=== PATIENT | female | born 1945 | race Caucasian/White ===

== ENCOUNTER 2018-03-17 03:35 | Inpatient (IN) | payer MEDICARE, OTHER ==
[2018-03-17] MEDS ORDERED: ACETAMINOPHEN 325 MG TAB PO (05:30)
[2018-03-17] MEDS ORDERED: E LYTES MM (05:30)
[2018-03-17] MEDS ORDERED: CARBOXYMETHYLCELLULOSE MM (05:30)
[2018-03-17] MEDS ORDERED: DEXTROSE 50% 50 ML SYRINGE IV ×3 (05:30→06:30)
[2018-03-17] MEDS ORDERED: VANCOMYCIN IV PER PHARMACY XX (05:30)
[2018-03-17] MEDS ORDERED: GLUCAGON 1 MG INJ IM ×2 (05:30→06:30)
[2018-03-17] MEDS: METOCLOPRAMIDE 10 MG INJ IV ×3 (06:00→18:23)
[2018-03-17] MEDS ORDERED: LEVOTHYROXINE 175 MCG TAB PO (06:00)
[2018-03-17] MEDS ORDERED: NORepinephrine 8MG/250 ML (PMX 250 ML (06:21)
[2018-03-17] MEDS ORDERED: GLUCOSE GEL 15 GRAM TUBE BUCCAL (06:30)
[2018-03-17] MEDS ORDERED: GLUCOSE GEL 15 GRAM TUBE PO ×2 (06:30)
[2018-03-17] MEDS ORDERED: LEVOTHYROXINE 125 MCG TAB PO (06:47)
[2018-03-17] MEDS: NORepinephrine 8MG/250 ML (PMX 250 ML IV (07:17)
[2018-03-17 08:24] LABS: ABNORMAL IP MESSAGE 1; HEMATOCRIT 27.9 % (37.0-47.0); HEMOGLOBIN 8.6 g/dl (12.0-16.0); MEAN CORPUSCULAR HEMOGLOBIN 29.5 pg (29.0-33.0); MEAN CORPUSCULAR HGB CONC 30.8 g/dl (32.0-37.0); MEAN CORPUSCULAR VOLUME 95.5 fl (82.0-101.0); MEAN PLATELET VOLUME 10.9 fl (7.4-10.4); NUCLEATED RED BLOOD CELLS% 0.7 /100WBC (0.0-0.0); PLATELET COUNT 89 10^3/UL (140-415); RED BLOOD COUNT 2.92 10^6/ul (4.20-5.40); RED CELL DISTRIBUTION WIDTH 21.8 % (11.5-14.5)
[2018-03-17 08:24] LABS: WHITE BLOOD COUNT 21.6 10^3/ul (4.8-10.8)
[2018-03-17 08:27] LABS: ADD MAN DIFF? YES; POSITIVE DIFF @See below
[2018-03-17 08:41] LABS: VANCOMYCIN,RANDOM 12.7 ug/ml
[2018-03-17] MEDS: MIDODRINE 5 MG TAB PO ×3 (09:00→17:00)
[2018-03-17] MEDS: FLUCONAZOLE 100 MG TAB NGT (09:00)
[2018-03-17] MEDS ORDERED: PETROLATUM 5 GM OINT TOP (09:00)
[2018-03-17] MEDS: CLOTRIMAZOLE 10 MG TROCHE MT ×5 (09:00→22:01)
[2018-03-17] MEDS: NYSTATIN SUSP 5 ML CUP PO ×4 (09:00→22:01)
[2018-03-17] MEDS: LIDOCAINE 5% PATCH TD (09:00)
[2018-03-17] MEDS: PETROLATUM 28.35 GM JELLY TOP (09:00)
[2018-03-17] MEDS: DOCUSATE SODIUM 100 MG CAP PO (09:00)
[2018-03-17 09:17] LABS: ANISOCYTOSIS 2+ (0-0); BAND NEUTROPHILS #M 5.4 10^3/ul (0.0-0.6); BAND NEUTROPHILS % (M) 25 % (0-4); BASOPHIL #M 0.2 10^3/ul (0.0-0.0); BASOPHILS % (M) 1 % (0-2); BURR CELLS 1+ (0-0); HYPOCHROMASIA 1+ (0-0); LYMPHOCYTES #M 0.4 10^3/ul (0.8-2.9); LYMPHOCYTES % (M) 2 % (15-51); METAMYELOCYTES #M 0.2 10^3/ul (0.0-0.0); METAMYELOCYTES %M 1 % (0-0); MONOCYTE #M 0.2 10^3/ul (0.3-0.9); MONOCYTES % (M) 1 % (0-11); MYELOCYTES % (M) 5 % (0-0); PLATELET ESTIMATE DECREASED; POIKILOCYTOSIS 1+ (0-0); POLYCHROMASIA 3+ (0-0); SEG NEUT #M 15.2 10^3/ul (1.6-7.5); SEGMENTED NEUTROPHILS (M) % 65 % (39-77); SMUDGE%M 2 % (0-0)
[2018-03-17] MEDS: IPRATROPIUM (NEB) 0.5 MG/2.5 ML AMP HHN ×4 (09:26→21:37)
[2018-03-17] MEDS: ALBUTEROL 0.083% (NEB) 2.5 MG/3 ML AMP HHN ×4 (09:26→21:37)
[2018-03-17] MEDS: LIDOCAINE 2% VISC 15 ML CUP PO ×3 (09:30→18:23)
[2018-03-17] MEDS: PANTOPRAZOLE (EC) 40 MG TAB PO (09:34)
[2018-03-17] MEDS: LEVOTHYROXINE 125 MCG TAB PO (09:34)
[2018-03-17] MEDS: BACITRACIN 0.9 GM OINT TOP ×2 (09:37→21:53)
[2018-03-17] MEDS: NYSTATIN 30 GM POWDER BTL TOP ×2 (09:37→21:53)
[2018-03-17] MEDS: MEROPENEM 500MG/50 ML (PMX) 50 ML IVPB ×2 (09:37→22:37)
[2018-03-17 09:38] LABS: AADO2 Arterial 103.8 mmHg (7.0-24.0); Allen Test ACCEPTAB; Arterial Blood Gas Oxygen Sat 94.4 mmHG (95.0-98.0); Arterial COHb 1.3 % (0.0-3.0); Arterial Fraction of Oxyhgb 92.9 % (93.0-99.0); Arterial HCO3 24.9 mmol/L (22.0-26.0); Arterial MetHb 0.3 % (0.0-1.5); Arterial Total Hemglobin 9.8 g/dl (12.0-18.0); Arterial pCO2 60.4 mmhg (35-45); Blood Gas IEPAP 15/5; Blood Gas PS 10; MODE MASK - BIPAP; Site Right Radial
[2018-03-17] MEDS: INSULIN ASPART [NOVOLOG] 3 ML PEN SC ×4 (09:38→21:51)
[2018-03-17] MEDS: ALBUMIN HUMAN 25% 100 ML IV ×2 (10:19→18:24)
[2018-03-17 10:36] LABS: ANION GAP 15 (8-16); BLOOD UREA NITROGEN 92 mg/dl (7-20); CALCIUM 8.5 mg/dl (8.4-10.2); CARBON DIOXIDE 24 mmol/L (21-31); CHLORIDE 105 mmol/L (97-110); CREATININE 2.65 mg/dl (0.44-1.00); GLUCOSE 123 mg/dl (70-220); POTASSIUM 3.6 mmol/L (3.5-5.1); SODIUM 140 mmol/L (135-144)
[2018-03-17 10:49] LABS: LACTIC ACID 0.9 mmol/L (0.5-2.0)
[2018-03-17 10:50] LABS: ALANINE AMINOTRANSFERASE 18 IU/L (13-69); ALBUMIN 2.3 g/dl (3.3-4.9); ALKALINE PHOSPHATASE 305 IU/L (42-121); ASPARTATE AMINO TRANSFERASE 24 IU/L (15-46); TOTAL PROTEIN 5.2 g/dl (6.1-8.1)
[2018-03-17 11:06] LABS: INR 1.04; PROTIME 13.7 Sec (11.9-14.9); PT RATIO 1.1
[2018-03-17 11:07] LABS: PARTIAL THROMBOPLASTIN TIME 50.4 Sec (25.0-35.0)
[2018-03-17] MEDS: VANCOMYCIN 1 GM 250 ML IVPB (12:12)
[2018-03-17] MEDS: DIPHENHYDRAMINE 50 MG INJ IV (12:49)
[2018-03-17 14:41] LABS: ALANINE AMINOTRANSFERASE 14 IU/L (13-69); ALBUMIN 2.8 g/dl (3.3-4.9); ALKALINE PHOSPHATASE 277 IU/L (42-121); ANION GAP 13 (8-16); ASPARTATE AMINO TRANSFERASE 24 IU/L (15-46); BLOOD UREA NITROGEN 95 mg/dl (7-20); CALCIUM 8.5 mg/dl (8.4-10.2); CARBON DIOXIDE 25 mmol/L (21-31); CHLORIDE 104 mmol/L (97-110); CREATININE 2.64 mg/dl (0.44-1.00); GLUCOSE 165 mg/dl (70-220); PHOSPHORUS 2.6 mg/dl (2.5-4.9); POTASSIUM 3.4 mmol/L (3.5-5.1); SODIUM 139 mmol/L (135-144); TOTAL PROTEIN 5.9 g/dl (6.1-8.1); TRIGLYCERIDES 93 mg/dl (0-149)
[2018-03-17] MEDS: TPN 1,000 ML IV (15:23)
[2018-03-17] MEDS: FAT EMULSION 20% 250 ML IV (15:33)
[2018-03-17] MEDS ORDERED: FAT EMULSION 20% 250 ML IV (16:00)
[2018-03-17] MEDS: ACCU-CHEK XX ×2 (17:00→21:50)
[2018-03-17 17:39] LABS: FLD MN% 69.9 %; FLD PMN% 30.1 %; FLD RBC 32000 /uL; FLD WBC 689 /cmm
[2018-03-17] MEDS: LIDOCAINE 1% (MDV) 10 ML INJ (18:23)
[2018-03-17 18:53] LABS: FLD TYPE THORACENTHESIS
[2018-03-17 18:53] LABS: FLD CLARITY HAZY; FLD COLOR ORANGE
[2018-03-17] MEDS: traZODone 50 MG TAB PO (21:00)
[2018-03-17] MEDS: FLUCONAZOLE 100 MG/50 ML (PMX) 50 ML IVPB (22:37)
[2018-03-18] MEDS: DIPHENHYDRAMINE 50 MG INJ IV ×2 (00:38→22:07)
[2018-03-18] MEDS: METOCLOPRAMIDE 10 MG INJ IV ×4 (00:38→18:04)
[2018-03-18] MEDS: LIDOCAINE 2% VISC 15 ML CUP PO ×4 (00:38→18:04)
[2018-03-18] MEDS: ALBUMIN HUMAN 25% 100 ML IV (00:39)
[2018-03-18] MEDS: ACCU-CHEK XX ×6 (00:53→21:30)
[2018-03-18] MEDS: INSULIN ASPART [NOVOLOG] 3 ML PEN SC ×6 (00:53→21:32)
[2018-03-18] MEDS: IPRATROPIUM (NEB) 0.5 MG/2.5 ML AMP HHN ×6 (01:23→20:59)
[2018-03-18] MEDS: ALBUTEROL 0.083% (NEB) 2.5 MG/3 ML AMP HHN ×6 (01:23→20:59)
[2018-03-18] MEDS: LEVOTHYROXINE 125 MCG TAB PO (05:02)
[2018-03-18] MEDS: PANTOPRAZOLE (EC) 40 MG TAB PO (05:34)
[2018-03-18 05:59] LABS: ALANINE AMINOTRANSFERASE 22 IU/L (13-69); ALBUMIN 2.5 g/dl (3.3-4.9); ALKALINE PHOSPHATASE 306 IU/L (42-121); ANION GAP 16 (8-16); ASPARTATE AMINO TRANSFERASE 24 IU/L (15-46); BILIRUBIN,TOTAL 0.3 mg/dl (0.2-1.3); BLOOD UREA NITROGEN 99 mg/dl (7-20); CALCIUM 8.6 mg/dl (8.4-10.2); CARBON DIOXIDE 26 mmol/L (21-31); CHLORIDE 104 mmol/L (97-110); CREATININE 2.84 mg/dl (0.44-1.00); GLUCOSE 130 mg/dl (70-220); POTASSIUM 3.6 mmol/L (3.5-5.1); SODIUM 142 mmol/L (135-144); TRIGLYCERIDES 145 mg/dl (0-149)
[2018-03-18 06:04] LABS: PHOSPHORUS 2.1 mg/dl (2.5-4.9)
[2018-03-18 06:35] LABS: PREALBUMIN 7.2 mg/dl (17.6-36.0)
[2018-03-18] MEDS: ACETAMINOPHEN 1000MG/100ML IV 100 ML IVPB (07:00)
[2018-03-18 07:29] LABS: ABNORMAL IP MESSAGE 1; HEMATOCRIT 22.8 % (37.0-47.0); HEMOGLOBIN 7.2 g/dl (12.0-16.0); MEAN CORPUSCULAR HEMOGLOBIN 29.4 pg (29.0-33.0); MEAN CORPUSCULAR HGB CONC 31.6 g/dl (32.0-37.0); MEAN CORPUSCULAR VOLUME 93.1 fl (82.0-101.0); MEAN PLATELET VOLUME 10.5 fl (7.4-10.4); NUCLEATED RED BLOOD CELLS% 1.1 /100WBC (0.0-0.0); PLATELET COUNT 103 10^3/UL (140-415); RED BLOOD COUNT 2.45 10^6/ul (4.20-5.40); RED CELL DISTRIBUTION WIDTH 21.9 % (11.5-14.5)
[2018-03-18 07:29] LABS: WHITE BLOOD COUNT 18.9 10^3/ul (4.8-10.8)
[2018-03-18] MEDS ORDERED: ACETAMINOPHEN 1000MG/100ML IV 100 ML IVPB (07:30)
[2018-03-18] MEDS: TPN 1,000 ML IV ×2 (07:34→22:17)
[2018-03-18 07:37] LABS: ADD MAN DIFF? YES; POSITIVE DIFF @See below
[2018-03-18] MEDS: PANTOPRAZOLE 40 MG INJ IV (08:45)
[2018-03-18] MEDS: NYSTATIN 30 GM POWDER BTL TOP ×2 (08:46→21:31)
[2018-03-18] MEDS: PETROLATUM 28.35 GM JELLY TOP (08:46)
[2018-03-18] MEDS: LIDOCAINE 5% PATCH TD (08:48)
[2018-03-18] MEDS: MIDODRINE 5 MG TAB PO ×3 (09:00→17:00)
[2018-03-18] MEDS: CLOTRIMAZOLE 10 MG TROCHE MT ×5 (09:00→21:00)
[2018-03-18] MEDS: DOCUSATE SODIUM 100 MG CAP PO (09:00)
[2018-03-18] MEDS: NYSTATIN SUSP 5 ML CUP PO ×4 (09:00→21:32)
[2018-03-18 09:01] LABS: HEPATITIS B SURFACE ANTIGEN NEGATIVE (NEGATIVE)
[2018-03-18] MEDS: MEROPENEM 500MG/50 ML (PMX) 50 ML IVPB ×2 (09:19→21:32)
[2018-03-18 09:42] LABS: AADO2 Arterial 102.7 mmHg (7.0-24.0); Allen Test ACCEPTAB; Arterial Base Excess 1.3 mmol/L (-3.0-3); Arterial Blood Gas Oxygen Sat 94.1 mmHG (95.0-98.0); Arterial COHb 1.1 % (0.0-3.0); Arterial Fraction of Oxyhgb 92.8 % (93.0-99.0); Arterial HCO3 25.4 mmol/L (22.0-26.0); Arterial MetHb 0.3 % (0.0-1.5); Arterial Total Hemglobin 4.4 g/dl (12.0-18.0); Arterial pCO2 37.2 mmhg (35-45); Blood Gas IEPAP 15/5; Blood Gas PS 10; MODE MASK - BIPAP; Site Left Radial
[2018-03-18 09:43] LABS: ANISOCYTOSIS 2+ (0-0); BAND NEUTROPHILS % (M) 11 % (0-4); ERYTHROBLAST% (NRBC) (M) 2 % (0-0); GIANT THROMBO% (M) 1 % (0-0); HYPOCHROMASIA 1+ (0-0); LYMPHOCYTES #M 0.3 10^3/ul (0.8-2.9); LYMPHOCYTES % (M) 2 % (15-51); METAMYELOCYTES #M 0.1 10^3/ul (0.0-0.0); METAMYELOCYTES %M 1 % (0-0); MONOCYTE #M 0.5 10^3/ul (0.3-0.9); MONOCYTES % (M) 3 % (0-11); MYELOCYTES #M 0.7 10^3/ul (0.0-0.0); MYELOCYTES % (M) 4 % (0-0); PLASMA CELLS #M 0.1 10^3/ul (0.0-0.0); PLASMAC%(M) 1 % (0); PLATELET ESTIMATE DECREASED; POLYCHROMASIA 2+ (0-0); SEG NEUT #M 15.1 10^3/ul (1.6-7.5); SEGMENTED NEUTROPHILS (M) % 78 % (39-77); SMUDGE%M 3 % (0-0); TARGET CELLS 1+ (0-0)
[2018-03-18 11:07] LABS: HEMATOCRIT 21.5 % (37.0-47.0)
[2018-03-18] MEDS: morphine 2 MG INJ IV ×2 (11:12→18:04)
[2018-03-18] MEDS: BACITRACIN 0.9 GM OINT TOP ×2 (11:12→22:07)
[2018-03-18 11:17] LABS: HEMOGLOBIN 6.8 g/dl (12.0-16.0)
[2018-03-18 14:45] LABS: IMMEDIATE SPIN CROSSMATCH 1 2
[2018-03-18] MEDS: HEPARIN 1000 UNITS/ML 10 ML INJ CATHETER (16:55)
[2018-03-18] MEDS: FLUCONAZOLE 100 MG/50 ML (PMX) 50 ML IVPB (18:04)
[2018-03-18] MEDS: FAT EMULSION 20% 250 ML IV (18:04)
[2018-03-18] MEDS: traZODone 50 MG TAB PO (21:34)
[2018-03-19] MEDS: ACCU-CHEK XX ×6 (01:00→21:21)
[2018-03-19] MEDS: ALBUTEROL 0.083% (NEB) 2.5 MG/3 ML AMP HHN ×6 (01:53→20:16)
[2018-03-19] MEDS: IPRATROPIUM (NEB) 0.5 MG/2.5 ML AMP HHN ×6 (01:53→20:16)
[2018-03-19] MEDS: METOCLOPRAMIDE 10 MG INJ IV ×4 (02:03→17:43)
[2018-03-19] MEDS: morphine 2 MG INJ IV (02:04)
[2018-03-19] MEDS: INSULIN ASPART [NOVOLOG] 3 ML PEN SC ×6 (02:05→21:00)
[2018-03-19 05:21] LABS: ADD MAN DIFF? NO
[2018-03-19 05:27] LABS: WHITE BLOOD COUNT 21.8 10^3/ul (4.8-10.8)
[2018-03-19 05:27] LABS: ABNORMAL IP MESSAGE 1; HEMATOCRIT 26.5 % (37.0-47.0); HEMOGLOBIN 8.8 g/dl (12.0-16.0); MEAN CORPUSCULAR HGB CONC 33.2 g/dl (32.0-37.0); MEAN CORPUSCULAR VOLUME 90.4 fl (82.0-101.0); MEAN PLATELET VOLUME 10.2 fl (7.4-10.4); NUCLEATED RED BLOOD CELLS% 0.3 /100WBC (0.0-0.0); PLATELET COUNT 80 10^3/UL (140-415); RED BLOOD COUNT 2.93 10^6/ul (4.20-5.40); RED CELL DISTRIBUTION WIDTH 19.9 % (11.5-14.5)
[2018-03-19 05:33] LABS: POSITIVE DIFF @See below
[2018-03-19] MEDS: LIDOCAINE 2% VISC 15 ML CUP PO ×4 (06:00→17:43)
[2018-03-19] MEDS ORDERED: LEVOTHYROXINE 500 MCG VIAL IV (06:00)
[2018-03-19 06:02] LABS: PHOSPHORUS 2.1 mg/dl (2.5-4.9)
[2018-03-19 06:08] LABS: ANION GAP 13 (8-16); BLOOD UREA NITROGEN 78 mg/dl (7-20); CALCIUM 8.1 mg/dl (8.4-10.2); CARBON DIOXIDE 27 mmol/L (21-31); CHLORIDE 104 mmol/L (97-110); CREATININE 2.26 mg/dl (0.44-1.00); GLUCOSE 129 mg/dl (70-220); POTASSIUM 3.3 mmol/L (3.5-5.1); SODIUM 141 mmol/L (135-144)
[2018-03-19] MEDS: LEVOTHYROXINE 200 MCG VIAL IV (06:53)
[2018-03-19] MEDS: PANTOPRAZOLE 40 MG INJ IV (06:53)
[2018-03-19 07:16] LABS: Allen Test ACCEPTAB; Arterial Base Excess 2.7 mmol/L (-3.0-3); Arterial COHb 1.7 % (0.0-3.0); Arterial Fraction of Oxyhgb 90.2 % (93.0-99.0); Arterial MetHb 0.3 % (0.0-1.5); Arterial pCO2 46.4 mmhg (35-45); MODE NASAL CANNULA; Site Right Radial
[2018-03-19 08:30] LABS: ANISOCYTOSIS 2+ (0-0); BAND NEUTROPHILS #M 0.2 10^3/ul (0.0-0.6); BAND NEUTROPHILS % (M) 1 % (0-4); BASOPHIL #M 0.2 10^3/ul (0.0-0.0); BASOPHILS % (M) 1 % (0-2); EOSINOPHILS % (M) 4 % (0-7); ERYTHROBLAST% (NRBC) (M) 1 % (0-0); HYPOCHROMASIA 1+ (0-0); LYMPHOCYTES #M 0.6 10^3/ul (0.8-2.9); LYMPHOCYTES % (M) 3 % (15-51); METAMYELOCYTES #M 0.4 10^3/ul (0.0-0.0); METAMYELOCYTES %M 2 % (0-0); MICROCYTOSIS 1+ (0-0); MONOCYTE #M 0.4 10^3/ul (0.3-0.9); MONOCYTES % (M) 2 % (0-11); MYELOCYTES #M 0.8 10^3/ul (0.0-0.0); MYELOCYTES % (M) 4 % (0-0); PLATELET ESTIMATE DECREASED; POIKILOCYTOSIS 1+ (0-0); POLYCHROMASIA 3+ (0-0); SEG NEUT #M 18.1 10^3/ul (1.6-7.5); SEGMENTED NEUTROPHILS (M) % 83 % (39-77); SMUDGE%M 3 % (0-0)
[2018-03-19] MEDS: DOCUSATE SODIUM 100 MG CAP PO (09:00)
[2018-03-19] MEDS: NYSTATIN SUSP 5 ML CUP PO ×4 (09:00→21:21)
[2018-03-19] MEDS: CLOTRIMAZOLE 10 MG TROCHE MT ×5 (09:00→21:21)
[2018-03-19] MEDS: MIDODRINE 5 MG TAB PO ×3 (09:00→17:43)
[2018-03-19] MEDS: MEROPENEM 500MG/50 ML (PMX) 50 ML IVPB ×2 (09:28→21:41)
[2018-03-19] MEDS: LIDOCAINE 5% PATCH TD (09:29)
[2018-03-19] MEDS: PETROLATUM 28.35 GM JELLY TOP (09:29)
[2018-03-19] MEDS: BACITRACIN 0.9 GM OINT TOP ×2 (09:29→21:21)
[2018-03-19] MEDS: NYSTATIN 30 GM POWDER BTL TOP ×2 (09:29→21:21)
[2018-03-19] MEDS: HEPARIN 1000 UNITS/ML 10 ML INJ CATHETER (12:17)
[2018-03-19] MEDS: TPN 1,000 ML IV ×2 (14:40→15:42)
[2018-03-19] MEDS: FLUCONAZOLE 100 MG/50 ML (PMX) 50 ML IVPB (15:28)
[2018-03-19] MEDS: POTASSIUM PHOSPHATE 40 MEQ in SOD CHLORIDE 0.9% 250 ML IVPB (16:40)
[2018-03-19] MEDS: traZODone 50 MG TAB PO (21:21)
[2018-03-19] MEDS: FENTAnyl 50 MCG/ML VIAL IV (21:38)
[2018-03-20] MEDS: METOCLOPRAMIDE 10 MG INJ IV ×5 (00:08→22:59)
[2018-03-20] MEDS: LIDOCAINE 2% VISC 15 ML CUP PO ×4 (00:08→17:41)
[2018-03-20] MEDS: IPRATROPIUM (NEB) 0.5 MG/2.5 ML AMP HHN ×6 (01:12→21:00)
[2018-03-20] MEDS: ALBUTEROL 0.083% (NEB) 2.5 MG/3 ML AMP HHN ×6 (01:12→21:00)
[2018-03-20] MEDS: ACCU-CHEK XX ×6 (01:19→22:35)
[2018-03-20] MEDS: INSULIN ASPART [NOVOLOG] 3 ML PEN SC ×6 (01:25→22:55)
[2018-03-20 05:05] LABS: ABNORMAL IP MESSAGE 1; HEMATOCRIT 27.6 % (37.0-47.0); HEMOGLOBIN 9.1 g/dl (12.0-16.0); MEAN CORPUSCULAR HEMOGLOBIN 30.1 pg (29.0-33.0); MEAN CORPUSCULAR VOLUME 91.4 fl (82.0-101.0); MEAN PLATELET VOLUME 10.4 fl (7.4-10.4); NUCLEATED RED BLOOD CELLS% 0.1 /100WBC (0.0-0.0); PLATELET COUNT 83 10^3/UL (140-415); RED BLOOD COUNT 3.02 10^6/ul (4.20-5.40)
[2018-03-20 05:05] LABS: WHITE BLOOD COUNT 23.3 10^3/ul (4.8-10.8)
[2018-03-20] MEDS: PANTOPRAZOLE 40 MG INJ IV (05:14)
[2018-03-20 05:38] LABS: POSITIVE DIFF @See below
[2018-03-20 05:39] LABS: ADD MAN DIFF? YES
[2018-03-20 06:09] LABS: ANION GAP 13 (8-16); BLOOD UREA NITROGEN 65 mg/dl (7-20); CALCIUM 8.2 mg/dl (8.4-10.2); CARBON DIOXIDE 30 mmol/L (21-31); CHLORIDE 102 mmol/L (97-110); CREATININE 1.91 mg/dl (0.44-1.00); GLUCOSE 139 mg/dl (70-220); PHOSPHORUS 3.1 mg/dl (2.5-4.9); POTASSIUM 3.9 mmol/L (3.5-5.1); SODIUM 141 mmol/L (135-144)
[2018-03-20 06:59] LABS: VANCOMYCIN,RANDOM 12.5 ug/ml
[2018-03-20] MEDS: LEVOTHYROXINE 200 MCG VIAL IV (07:54)
[2018-03-20] MEDS: NYSTATIN 30 GM POWDER BTL TOP ×2 (08:46→22:34)
[2018-03-20] MEDS: PETROLATUM 28.35 GM JELLY TOP (08:46)
[2018-03-20] MEDS: BACITRACIN 0.9 GM OINT TOP ×2 (08:46→22:59)
[2018-03-20] MEDS: DOCUSATE SODIUM 100 MG CAP PO (08:46)
[2018-03-20] MEDS: NYSTATIN SUSP 5 ML CUP PO ×4 (08:46→22:33)
[2018-03-20] MEDS: MIDODRINE 5 MG TAB PO ×3 (08:47→22:33)
[2018-03-20] MEDS: LIDOCAINE 5% PATCH TD (08:47)
[2018-03-20] MEDS: CLOTRIMAZOLE 10 MG TROCHE MT ×5 (09:00→22:33)
[2018-03-20] MEDS: MEROPENEM 500MG/50 ML (PMX) 50 ML IVPB ×2 (09:49→22:29)
[2018-03-20 09:55] LABS: ANISOCYTOSIS 1+ (0-0); BAND NEUTROPHILS #M 1.8 10^3/ul (0.0-0.6); BAND NEUTROPHILS % (M) 8 % (0-4); LYMPHOCYTES #M 0.6 10^3/ul (0.8-2.9); LYMPHOCYTES % (M) 3 % (15-51); METAMYELOCYTES #M 0.4 10^3/ul (0.0-0.0); METAMYELOCYTES %M 2 % (0-0); MYELOCYTES #M 0.9 10^3/ul (0.0-0.0); MYELOCYTES % (M) 4 % (0-0); PLATELET ESTIMATE DECREASED; POLYCHROMASIA 3+ (0-0); REACTIVE LYMPHOCYTES #M 0.2 10^3/ul (0.0-0.0); REACTIVE LYMPHOCYTES% (M) 1 % (0-0); SEG NEUT #M 19.5 10^3/ul (1.6-7.5); SEGMENTED NEUTROPHILS (M) % 82 % (39-77); SMUDGE%M 7 % (0-0)
[2018-03-20] MEDS: VANCOMYCIN 1 GM 250 ML IVPB (12:17)
[2018-03-20] MEDS: TPN 1,000 ML IV (12:34)
[2018-03-20] MEDS: FLUCONAZOLE 100 MG/50 ML (PMX) 50 ML IVPB (15:57)
[2018-03-20] MEDS: FAT EMULSION 20% 250 ML IV (15:58)
[2018-03-20] MEDS: HEPARIN 5,000 UNIT/0.5 ML VIAL SC (21:00)
[2018-03-20] MEDS: HEPARIN 1000 UNITS/ML 10 ML INJ CATHETER (22:17)
[2018-03-20] MEDS: traZODone 50 MG TAB PO (22:33)
[2018-03-20] MEDS: FENTAnyl 50 MCG/ML VIAL IV (22:56)
[2018-03-21] MEDS: ACCU-CHEK XX ×6 (00:53→21:00)
[2018-03-21] MEDS: LIDOCAINE 2% VISC 15 ML CUP PO ×4 (00:53→17:23)
[2018-03-21] MEDS: INSULIN ASPART [NOVOLOG] 3 ML PEN SC ×6 (01:03→21:00)
[2018-03-21] MEDS: IPRATROPIUM (NEB) 0.5 MG/2.5 ML AMP HHN ×6 (01:16→20:03)
[2018-03-21] MEDS: ALBUTEROL 0.083% (NEB) 2.5 MG/3 ML AMP HHN ×6 (01:16→20:03)
[2018-03-21 05:37] LABS: ABNORMAL IP MESSAGE 1; HEMATOCRIT 28.5 % (37.0-47.0); HEMOGLOBIN 9.1 g/dl (12.0-16.0); MEAN CORPUSCULAR HEMOGLOBIN 29.2 pg (29.0-33.0); MEAN CORPUSCULAR HGB CONC 31.9 g/dl (32.0-37.0); MEAN CORPUSCULAR VOLUME 91.3 fl (82.0-101.0); NUCLEATED RED BLOOD CELLS% 0.1 /100WBC (0.0-0.0); PLATELET COUNT 73 10^3/UL (140-415); RED BLOOD COUNT 3.12 10^6/ul (4.20-5.40)
[2018-03-21 05:37] LABS: WHITE BLOOD COUNT 25.1 10^3/ul (4.8-10.8)
[2018-03-21] MEDS: FENTAnyl 50 MCG/ML VIAL IV ×4 (05:58→20:54)
[2018-03-21 06:03] LABS: ADD MAN DIFF? YES; POSITIVE DIFF @See below
[2018-03-21] MEDS: LEVOTHYROXINE 200 MCG VIAL IV (06:14)
[2018-03-21] MEDS: PANTOPRAZOLE 40 MG INJ IV (06:14)
[2018-03-21] MEDS: METOCLOPRAMIDE 10 MG INJ IV ×3 (06:14→17:02)
[2018-03-21 06:28] LABS: ANION GAP 12 (8-16); BLOOD UREA NITROGEN 57 mg/dl (7-20); CALCIUM 8.2 mg/dl (8.4-10.2); CARBON DIOXIDE 29 mmol/L (21-31); CHLORIDE 100 mmol/L (97-110); CREATININE 1.68 mg/dl (0.44-1.00); GLUCOSE 125 mg/dl (70-220); MAGNESIUM 1.9 mg/dl (1.7-2.5); POTASSIUM 4.2 mmol/L (3.5-5.1); SODIUM 137 mmol/L (135-144)
[2018-03-21 07:52] LABS: ANISOCYTOSIS 1+ (0-0); BAND NEUTROPHILS #M 3.5 10^3/ul (0.0-0.6); BAND NEUTROPHILS % (M) 14 % (0-4); HYPOCHROMASIA 1+ (0-0); LYMPHOCYTES #M 0.5 10^3/ul (0.8-2.9); LYMPHOCYTES % (M) 2 % (15-51); MONOCYTE #M 0.2 10^3/ul (0.3-0.9); MONOCYTES % (M) 1 % (0-11); MYELOCYTES % (M) 4 % (0-0); PLATELET ESTIMATE INCREASED; POLYCHROMASIA 3+ (0-0); SEG NEUT #M 20.7 10^3/ul (1.6-7.5); SEGMENTED NEUTROPHILS (M) % 79 % (39-77); SMUDGE%M 12 % (0-0)
[2018-03-21] MEDS: NYSTATIN SUSP 5 ML CUP PO ×4 (08:38→21:02)
[2018-03-21] MEDS: PETROLATUM 28.35 GM JELLY TOP (08:38)
[2018-03-21] MEDS: BACITRACIN 0.9 GM OINT TOP ×2 (08:38→21:01)
[2018-03-21] MEDS: DOCUSATE SODIUM 100 MG CAP PO (08:38)
[2018-03-21] MEDS: MIDODRINE 5 MG TAB PO ×3 (08:38→21:02)
[2018-03-21] MEDS: CEPASTAT LOZENGE MT (08:38)
[2018-03-21] MEDS: LIDOCAINE 5% PATCH TD (08:39)
[2018-03-21] MEDS: NYSTATIN 30 GM POWDER BTL TOP ×2 (08:39→21:00)
[2018-03-21] MEDS: HEPARIN 5,000 UNIT/0.5 ML VIAL SC ×2 (08:43→21:03)
[2018-03-21] MEDS: MEROPENEM 500MG/50 ML (PMX) 50 ML IVPB ×2 (08:56→21:00)
[2018-03-21] MEDS: CLOTRIMAZOLE 10 MG TROCHE MT ×5 (08:56→21:00)
[2018-03-21] MEDS: TPN 1,000 ML IV ×2 (09:47→11:28)
[2018-03-21] MEDS: ONDANSETRON 4 MG INJ IV ×2 (13:56→20:54)
[2018-03-21] MEDS: FLUCONAZOLE 100 MG/50 ML (PMX) 50 ML IVPB (15:50)
[2018-03-21] MEDS: traZODone 50 MG TAB PO (21:00)
[2018-03-22] MEDS: LIDOCAINE 2% VISC 15 ML CUP PO ×4 (00:12→17:13)
[2018-03-22] MEDS: FENTAnyl 50 MCG/ML VIAL IV ×5 (00:12→18:33)
[2018-03-22] MEDS: METOCLOPRAMIDE 10 MG INJ IV ×4 (00:12→17:22)
[2018-03-22] MEDS: ONDANSETRON 4 MG INJ IV ×4 (00:12→14:39)
[2018-03-22] MEDS: INSULIN ASPART [NOVOLOG] 3 ML PEN SC ×6 (00:42→21:36)
[2018-03-22] MEDS: ACCU-CHEK XX ×6 (00:43→21:29)
[2018-03-22] MEDS: IPRATROPIUM (NEB) 0.5 MG/2.5 ML AMP HHN ×6 (01:05→20:26)
[2018-03-22] MEDS: ALBUTEROL 0.083% (NEB) 2.5 MG/3 ML AMP HHN ×6 (01:05→20:26)
[2018-03-22] MEDS: PANTOPRAZOLE 40 MG INJ IV (05:06)
[2018-03-22 06:00] LABS: ANION GAP 15 (8-16); BLOOD UREA NITROGEN 69 mg/dl (7-20); CALCIUM 8.2 mg/dl (8.4-10.2); CARBON DIOXIDE 29 mmol/L (21-31); CHLORIDE 98 mmol/L (97-110); CREATININE 1.98 mg/dl (0.44-1.00); GLUCOSE 140 mg/dl (70-220); PHOSPHORUS 3.9 mg/dl (2.5-4.9); POTASSIUM 4.7 mmol/L (3.5-5.1); SODIUM 137 mmol/L (135-144)
[2018-03-22] MEDS: TPN 1,000 ML IV (06:37)
[2018-03-22] MEDS: LEVOTHYROXINE 200 MCG VIAL IV (06:55)
[2018-03-22] MEDS: MIDODRINE 5 MG TAB PO ×3 (08:15→21:28)
[2018-03-22] MEDS: BACITRACIN 0.9 GM OINT TOP ×2 (08:15→21:28)
[2018-03-22] MEDS: DOCUSATE SODIUM 100 MG CAP PO (08:16)
[2018-03-22] MEDS: LIDOCAINE 5% PATCH TD (08:16)
[2018-03-22] MEDS: MEROPENEM 500MG/50 ML (PMX) 50 ML IVPB ×2 (08:16→21:27)
[2018-03-22] MEDS: NYSTATIN SUSP 5 ML CUP PO ×4 (08:16→21:26)
[2018-03-22] MEDS: CLOTRIMAZOLE 10 MG TROCHE MT ×5 (08:16→21:52)
[2018-03-22] MEDS: PETROLATUM 28.35 GM JELLY TOP (08:17)
[2018-03-22] MEDS: NYSTATIN 30 GM POWDER BTL TOP ×2 (08:17→21:29)
[2018-03-22] MEDS: HEPARIN 5,000 UNIT/0.5 ML VIAL SC ×2 (08:53→21:30)
[2018-03-22] MEDS: FLUCONAZOLE 100 MG/50 ML (PMX) 50 ML IVPB (15:30)
[2018-03-22] MEDS: FAT EMULSION 20% 250 ML IV ×2 (16:00→17:22)
[2018-03-22] MEDS: HEPARIN 1000 UNITS/ML 10 ML INJ CATHETER (16:38)
[2018-03-22] MEDS: traZODone 50 MG TAB PO (21:27)
[2018-03-23] MEDS: FENTAnyl 50 MCG/ML VIAL IV ×5 (00:26→19:59)
[2018-03-23] MEDS: METOCLOPRAMIDE 10 MG INJ IV ×4 (00:26→17:23)
[2018-03-23] MEDS: LIDOCAINE 2% VISC 15 ML CUP PO ×4 (00:28→18:47)
[2018-03-23] MEDS: INSULIN ASPART [NOVOLOG] 3 ML PEN SC ×6 (00:40→21:36)
[2018-03-23] MEDS: ACCU-CHEK XX ×6 (00:47→21:38)
[2018-03-23] MEDS: ALBUTEROL 0.083% (NEB) 2.5 MG/3 ML AMP HHN ×7 (00:58→22:51)
[2018-03-23] MEDS: IPRATROPIUM (NEB) 0.5 MG/2.5 ML AMP HHN ×7 (00:58→22:52)
[2018-03-23] MEDS: DIPHENHYDRAMINE 50 MG INJ IV (01:00)
[2018-03-23 05:24] LABS: ABNORMAL IP MESSAGE 1; HEMOGLOBIN 9.4 g/dl (12.0-16.0); MEAN CORPUSCULAR HGB CONC 31.3 g/dl (32.0-37.0); MEAN CORPUSCULAR VOLUME 95.8 fl (82.0-101.0); MEAN PLATELET VOLUME 10.5 fl (7.4-10.4); PLATELET COUNT 93 10^3/UL (140-415); RED BLOOD COUNT 3.13 10^6/ul (4.20-5.40); RED CELL DISTRIBUTION WIDTH 19.6 % (11.5-14.5)
[2018-03-23 05:24] LABS: WHITE BLOOD COUNT 33.4 10^3/ul (4.8-10.8)
[2018-03-23] MEDS: PANTOPRAZOLE 40 MG INJ IV (05:30)
[2018-03-23 05:31] LABS: VANCOMYCIN,RANDOM 11.2 ug/ml
[2018-03-23 05:34] LABS: ANION GAP 14 (8-16)
[2018-03-23 05:38] LABS: BLOOD UREA NITROGEN 56 mg/dl (7-20); CALCIUM 7.8 mg/dl (8.4-10.2); CARBON DIOXIDE 27 mmol/L (21-31); CHLORIDE 96 mmol/L (97-110); CREATININE 1.57 mg/dl (0.44-1.00); GLUCOSE 164 mg/dl (70-220); MAGNESIUM 1.9 mg/dl (1.7-2.5); PHOSPHORUS 3.8 mg/dl (2.5-4.9); POTASSIUM 4.9 mmol/L (3.5-5.1); SODIUM 132 mmol/L (135-144)
[2018-03-23 06:07] LABS: POSITIVE DIFF @See below
[2018-03-23 06:08] LABS: ADD MAN DIFF? YES
[2018-03-23] MEDS: LEVOTHYROXINE 200 MCG VIAL IV (06:32)
[2018-03-23] MEDS: TPN 1,000 ML IV (07:37)
[2018-03-23] MEDS: NYSTATIN SUSP 5 ML CUP PO ×4 (09:00→21:10)
[2018-03-23] MEDS: DOCUSATE SODIUM 100 MG CAP PO (09:00)
[2018-03-23] MEDS: CLOTRIMAZOLE 10 MG TROCHE MT ×5 (09:00→21:11)
[2018-03-23 09:06] LABS: ANISOCYTOSIS 2+ (0-0); BAND NEUTROPHILS % (M) 3 % (0-4); BURR CELLS 3+ (0-0); EOSINOPHILS % (M) 3 % (0-7); HYPOCHROMASIA 1+ (0-0); LYMPHOCYTES % (M) 3 % (15-51); PLATELET ESTIMATE DECREASED; POIKILOCYTOSIS 2+ (0-0); POLYCHROMASIA 3+ (0-0); SEG NEUT #M 30.7 10^3/ul (1.6-7.5); SEGMENTED NEUTROPHILS (M) % 91 % (39-77)
[2018-03-23] MEDS: ALBUMIN HUMAN 25% 50 ML IV ×2 (09:32→16:16)
[2018-03-23] MEDS: MEROPENEM 500MG/50 ML (PMX) 50 ML IVPB ×2 (09:42→21:10)
[2018-03-23] MEDS: HEPARIN 5,000 UNIT/0.5 ML VIAL SC ×2 (10:48→21:14)
[2018-03-23] MEDS: NYSTATIN 30 GM POWDER BTL TOP ×2 (10:50→21:26)
[2018-03-23] MEDS: LIDOCAINE 5% PATCH TD (10:50)
[2018-03-23] MEDS: BACITRACIN 0.9 GM OINT TOP ×2 (10:50→21:11)
[2018-03-23] MEDS: MIDODRINE 5 MG TAB PO ×3 (10:51→21:10)
[2018-03-23] MEDS: PETROLATUM 28.35 GM JELLY TOP (10:51)
[2018-03-23] MEDS: ONDANSETRON 4 MG TAB PO ×3 (10:59→22:01)
[2018-03-23] MEDS: VANCOMYCIN 1.25 GM in SOD CHLORIDE 0.9% 250 ML IVPB (12:01)
[2018-03-23] MEDS: PROMETHAZINE (1.25 MG/ML) 5 ML CUP PO (13:55)
[2018-03-23] MEDS: FLUCONAZOLE 100 MG/50 ML (PMX) 50 ML IVPB (16:15)
[2018-03-23] MEDS: ONDANSETRON 4 MG INJ IV (20:02)
[2018-03-23] MEDS: traZODone 50 MG TAB PO (21:11)
[2018-03-23] MEDS: OXYCODONE/ACETAMINOPHEN (5/325) TAB PO (22:06)
[2018-03-24] MEDS: ALBUMIN HUMAN 25% 50 ML IV (00:17)
[2018-03-24] MEDS: LIDOCAINE 2% VISC 15 ML CUP PO ×5 (00:18→23:41)
[2018-03-24] MEDS: METOCLOPRAMIDE 10 MG INJ IV ×5 (00:18→23:41)
[2018-03-24] MEDS: FENTAnyl 50 MCG/ML VIAL IV ×4 (00:22→21:48)
[2018-03-24] MEDS: IPRATROPIUM (NEB) 0.5 MG/2.5 ML AMP HHN ×6 (01:46→22:42)
[2018-03-24] MEDS: ALBUTEROL 0.083% (NEB) 2.5 MG/3 ML AMP HHN ×6 (01:46→22:42)
[2018-03-24] MEDS: INSULIN ASPART [NOVOLOG] 3 ML PEN SC ×6 (02:26→22:10)
[2018-03-24] MEDS: ACCU-CHEK XX ×6 (02:28→22:00)
[2018-03-24 05:45] LABS: ADD MAN DIFF? NO
[2018-03-24 05:47] LABS: WHITE BLOOD COUNT 23.7 10^3/ul (4.8-10.8)
[2018-03-24 05:47] LABS: ABNORMAL IP MESSAGE 1; BASOPHILS % 0.1 % (0.0-2.0); EOSINOPHILS # 0.2 10^3/ul (0.0-0.5); EOSINOPHILS % 0.8 % (0.0-7.0); LYMPHOCYTES # 0.6 10^3/ul (0.8-2.9); LYMPHOCYTES % 2.3 % (15.0-51.0); MEAN CORPUSCULAR HEMOGLOBIN 29.2 pg (29.0-33.0); MEAN CORPUSCULAR HGB CONC 30.8 g/dl (32.0-37.0); MEAN CORPUSCULAR VOLUME 94.9 fl (82.0-101.0); MEAN PLATELET VOLUME 11.3 fl (7.4-10.4); MONOCYTE # 0.5 10^3/ul (0.3-0.9); MONOCYTES % 2.1 % (0.0-11.0); NEUTROPHIL # 21.9 10^3/ul (1.6-7.5); NEUTROPHILS % 92.7 % (39.0-77.0); PLATELET COUNT 107 10^3/UL (140-415); RED BLOOD COUNT 2.74 10^6/ul (4.20-5.40)
[2018-03-24 05:58] LABS: POSITIVE DIFF @See below
[2018-03-24] MEDS: PANTOPRAZOLE 40 MG INJ IV (05:58)
[2018-03-24] MEDS: TPN 1,000 ML IV ×2 (06:10→15:18)
[2018-03-24 06:20] LABS: ANION GAP 15 (8-16); BLOOD UREA NITROGEN 63 mg/dl (7-20); CARBON DIOXIDE 27 mmol/L (21-31); CHLORIDE 94 mmol/L (97-110); CREATININE 1.92 mg/dl (0.44-1.00); GLUCOSE 134 mg/dl (70-220); MAGNESIUM 1.7 mg/dl (1.7-2.5); PHOSPHORUS 4.4 mg/dl (2.5-4.9); POTASSIUM 4.7 mmol/L (3.5-5.1); SODIUM 131 mmol/L (135-144)
[2018-03-24] MEDS: LEVOTHYROXINE 200 MCG VIAL IV (07:42)
[2018-03-24] MEDS: NYSTATIN SUSP 5 ML CUP PO ×4 (08:04→21:46)
[2018-03-24] MEDS: DOCUSATE SODIUM 100 MG CAP PO (08:05)
[2018-03-24] MEDS: MIDODRINE 5 MG TAB PO (08:05)
[2018-03-24] MEDS: HEPARIN 5,000 UNIT/0.5 ML VIAL SC ×2 (08:07→21:51)
[2018-03-24] MEDS: CLOTRIMAZOLE 10 MG TROCHE MT ×5 (08:08→21:46)
[2018-03-24] MEDS: MEROPENEM 500MG/50 ML (PMX) 50 ML IVPB ×2 (08:08→21:41)
[2018-03-24] MEDS: PETROLATUM 28.35 GM JELLY TOP (08:09)
[2018-03-24] MEDS: NYSTATIN 30 GM POWDER BTL TOP ×2 (08:09→22:04)
[2018-03-24] MEDS: BACITRACIN 0.9 GM OINT TOP ×2 (08:09→21:46)
[2018-03-24] MEDS: LIDOCAINE 5% PATCH TD (08:09)
[2018-03-24] MEDS: ONDANSETRON 4 MG INJ IV ×3 (08:31→21:47)
[2018-03-24] MEDS: MIDODRINE 2.5 MG TAB PO ×3 (09:37→16:54)
[2018-03-24] MEDS: OXYCODONE/ACETAMINOPHEN (5/325) TAB PO ×2 (14:36→23:42)
[2018-03-24] MEDS: FAT EMULSION 20% 250 ML IV (16:00)
[2018-03-24] MEDS: PROMETHAZINE (1.25 MG/ML) 5 ML CUP PO ×2 (17:30→18:45)
[2018-03-24] MEDS: ALBUMIN HUMAN 25% 100 ML IV ×2 (18:19→19:50)
[2018-03-24] MEDS: HEPARIN 1000 UNITS/ML 10 ML INJ CATHETER (21:37)
[2018-03-24] MEDS: traZODone 50 MG TAB PO (21:46)
[2018-03-24] MEDS: FLUCONAZOLE 100 MG/50 ML (PMX) 50 ML IVPB (23:06)
[2018-03-25] MEDS: INSULIN ASPART [NOVOLOG] 3 ML PEN SC ×6 (01:09→21:00)
[2018-03-25] MEDS: ACCU-CHEK XX ×6 (01:11→21:21)
[2018-03-25] MEDS: IPRATROPIUM (NEB) 0.5 MG/2.5 ML AMP HHN ×6 (01:58→20:42)
[2018-03-25] MEDS: ALBUTEROL 0.083% (NEB) 2.5 MG/3 ML AMP HHN ×6 (01:59→20:42)
[2018-03-25] MEDS: FENTAnyl 50 MCG/ML VIAL IV (05:12)
[2018-03-25] MEDS: ONDANSETRON 4 MG INJ IV (05:12)
[2018-03-25 05:22] LABS: ADD MAN DIFF? NO
[2018-03-25 05:25] LABS: ABNORMAL IP MESSAGE 1; BASOPHILS % 0.1 % (0.0-2.0); EOSINOPHILS # 0.2 10^3/ul (0.0-0.5); EOSINOPHILS % 0.8 % (0.0-7.0); HEMATOCRIT 23.2 % (37.0-47.0); HEMOGLOBIN 7.1 g/dl (12.0-16.0); LYMPHOCYTES # 0.5 10^3/ul (0.8-2.9); LYMPHOCYTES % 2.5 % (15.0-51.0); MEAN CORPUSCULAR HEMOGLOBIN 29.2 pg (29.0-33.0); MEAN CORPUSCULAR HGB CONC 30.6 g/dl (32.0-37.0); MEAN CORPUSCULAR VOLUME 95.5 fl (82.0-101.0); MEAN PLATELET VOLUME 10.9 fl (7.4-10.4); MONOCYTE # 0.5 10^3/ul (0.3-0.9); MONOCYTES % 2.2 % (0.0-11.0); NEUTROPHIL # 19.2 10^3/ul (1.6-7.5); NEUTROPHILS % 92.7 % (39.0-77.0); PLATELET COUNT 105 10^3/UL (140-415); RED BLOOD COUNT 2.43 10^6/ul (4.20-5.40); RED CELL DISTRIBUTION WIDTH 18.6 % (11.5-14.5)
[2018-03-25 05:25] LABS: WHITE BLOOD COUNT 20.7 10^3/ul (4.8-10.8)
[2018-03-25 05:37] LABS: POSITIVE DIFF @See below
[2018-03-25 05:52] LABS: ANION GAP 17 (8-16); BLOOD UREA NITROGEN 69 mg/dl (7-20); CALCIUM 8.2 mg/dl (8.4-10.2); CARBON DIOXIDE 26 mmol/L (21-31); CHLORIDE 94 mmol/L (97-110); CREATININE 1.96 mg/dl (0.44-1.00); GLUCOSE 126 mg/dl (70-220); MAGNESIUM 1.8 mg/dl (1.7-2.5); PHOSPHORUS 4.6 mg/dl (2.5-4.9); POTASSIUM 4.9 mmol/L (3.5-5.1); SODIUM 132 mmol/L (135-144)
[2018-03-25] MEDS: LIDOCAINE 2% VISC 15 ML CUP PO ×3 (06:15→17:41)
[2018-03-25] MEDS: METOCLOPRAMIDE 10 MG INJ IV ×3 (06:15→17:06)
[2018-03-25] MEDS: PANTOPRAZOLE 40 MG INJ IV (06:15)
[2018-03-25] MEDS: LEVOTHYROXINE 200 MCG VIAL IV (06:16)
[2018-03-25] MEDS: OXYCODONE/ACETAMINOPHEN (5/325) TAB PO ×3 (06:29→23:11)
[2018-03-25] MEDS: NYSTATIN SUSP 5 ML CUP PO ×4 (08:21→21:00)
[2018-03-25] MEDS: MIDODRINE 2.5 MG TAB PO ×3 (08:21→17:03)
[2018-03-25] MEDS: CLOTRIMAZOLE 10 MG TROCHE MT ×5 (08:21→20:59)
[2018-03-25] MEDS: DOCUSATE SODIUM 100 MG CAP PO (08:22)
[2018-03-25] MEDS: LIDOCAINE 5% PATCH TD (08:22)
[2018-03-25] MEDS: HEPARIN 5,000 UNIT/0.5 ML VIAL SC ×2 (08:25→21:03)
[2018-03-25] MEDS: NYSTATIN 30 GM POWDER BTL TOP ×2 (08:27→21:05)
[2018-03-25] MEDS: PETROLATUM 28.35 GM JELLY TOP (08:27)
[2018-03-25] MEDS: BACITRACIN 0.9 GM OINT TOP ×2 (08:28→21:05)
[2018-03-25] MEDS: MEROPENEM 500MG/50 ML (PMX) 50 ML IVPB ×2 (09:36→20:59)
[2018-03-25] MEDS: TPN 1,000 ML IV (11:52)
[2018-03-25 13:14] LABS: HEMATOCRIT 23.3 % (37.0-47.0)
[2018-03-25] MEDS: NORepinephrine 32 MG in DEXTROSE 5% 218 ML IV (13:23)
[2018-03-25] MEDS: FLUCONAZOLE 100 MG/50 ML (PMX) 50 ML IVPB (17:03)
[2018-03-25] MEDS: traZODone 50 MG TAB PO (20:59)
[2018-03-26] MEDS: LIDOCAINE 2% VISC 15 ML CUP PO ×4 (00:28→17:50)
[2018-03-26] MEDS: FENTAnyl 50 MCG/ML VIAL IV ×6 (00:28→23:50)
[2018-03-26] MEDS: METOCLOPRAMIDE 10 MG INJ IV ×4 (00:28→17:50)
[2018-03-26] MEDS: BISACODYL 10 MG SUPP PR (00:37)
[2018-03-26] MEDS: INSULIN ASPART [NOVOLOG] 3 ML PEN SC ×6 (00:58→21:00)
[2018-03-26] MEDS: ACCU-CHEK XX ×6 (01:18→21:50)
[2018-03-26] MEDS: ALBUTEROL 0.083% (NEB) 2.5 MG/3 ML AMP HHN ×6 (01:30→20:22)
[2018-03-26] MEDS: IPRATROPIUM (NEB) 0.5 MG/2.5 ML AMP HHN ×6 (01:30→20:22)
[2018-03-26] MEDS: PANTOPRAZOLE 40 MG INJ IV (05:56)
[2018-03-26] MEDS: LEVOTHYROXINE 200 MCG VIAL IV (05:57)
[2018-03-26 06:00] LABS: ADD MAN DIFF? NO
[2018-03-26 06:06] LABS: ABNORMAL IP MESSAGE 1
[2018-03-26 06:21] LABS: BASOPHILS % 0.2 % (0.0-2.0); EOSINOPHILS # 0.1 10^3/ul (0.0-0.5); EOSINOPHILS % 0.6 % (0.0-7.0); HEMATOCRIT 23.8 % (37.0-47.0); HEMOGLOBIN 7.1 g/dl (12.0-16.0); LYMPHOCYTES # 0.4 10^3/ul (0.8-2.9); LYMPHOCYTES % 2.1 % (15.0-51.0); MEAN CORPUSCULAR HEMOGLOBIN 28.4 pg (29.0-33.0); MEAN CORPUSCULAR HGB CONC 29.8 g/dl (32.0-37.0); MEAN CORPUSCULAR VOLUME 95.2 fl (82.0-101.0); MEAN PLATELET VOLUME 11.1 fl (7.4-10.4); MONOCYTE # 0.5 10^3/ul (0.3-0.9); MONOCYTES % 2.7 % (0.0-11.0); NEUTROPHIL # 17.1 10^3/ul (1.6-7.5); NEUTROPHILS % 93.1 % (39.0-77.0); PLATELET COUNT 150 10^3/UL (140-415); RED CELL DISTRIBUTION WIDTH 18.9 % (11.5-14.5)
[2018-03-26 06:21] LABS: WHITE BLOOD COUNT 18.4 10^3/ul (4.8-10.8)
[2018-03-26 06:29] LABS: POSITIVE DIFF @See below
[2018-03-26 06:36] LABS: ANION GAP 18 (8-16); BLOOD UREA NITROGEN 79 mg/dl (7-20); CALCIUM 8.3 mg/dl (8.4-10.2); CARBON DIOXIDE 24 mmol/L (21-31); CHLORIDE 95 mmol/L (97-110); CREATININE 2.31 mg/dl (0.44-1.00); GLUCOSE 134 mg/dl (70-220); MAGNESIUM 1.9 mg/dl (1.7-2.5); PHOSPHORUS 5.4 mg/dl (2.5-4.9); POTASSIUM 5.2 mmol/L (3.5-5.1); SODIUM 132 mmol/L (135-144)
[2018-03-26] MEDS: MIDODRINE 2.5 MG TAB PO (09:00)
[2018-03-26] MEDS: NA PHOSPHATE/BIPHOS 133 ML ENEMA PR (09:05)
[2018-03-26] MEDS: MEROPENEM 500MG/50 ML (PMX) 50 ML IVPB ×2 (09:05→21:50)
[2018-03-26] MEDS: NYSTATIN SUSP 5 ML CUP PO ×4 (09:05→21:50)
[2018-03-26] MEDS: LIDOCAINE 5% PATCH TD (09:06)
[2018-03-26] MEDS: NYSTATIN 30 GM POWDER BTL TOP ×2 (09:06→21:50)
[2018-03-26] MEDS: CLOTRIMAZOLE 10 MG TROCHE MT ×5 (09:07→21:50)
[2018-03-26] MEDS: PETROLATUM 28.35 GM JELLY TOP (09:07)
[2018-03-26] MEDS: BACITRACIN 0.9 GM OINT TOP ×2 (09:07→21:51)
[2018-03-26] MEDS: DOCUSATE SODIUM 100 MG CAP PO (09:08)
[2018-03-26] MEDS: HEPARIN 5,000 UNIT/0.5 ML VIAL SC ×2 (09:09→21:53)
[2018-03-26] MEDS: TPN 1,000 ML IV ×2 (09:19→17:50)
[2018-03-26] MEDS: ONDANSETRON 4 MG INJ IV ×2 (10:48→23:49)
[2018-03-26] MEDS: MIDODRINE 5 MG TAB PO ×2 (12:29→17:51)
[2018-03-26 12:49] LABS: OCCULT BLOOD STOOL NEGATIVE (NEGATIVE)
[2018-03-26] MEDS: SOD CHLORIDE 0.9% 250 ML IV* (14:23)
[2018-03-26] MEDS ORDERED: ALBUMIN HUMAN 25% 100 ML (14:34)
[2018-03-26] MEDS: ALBUMIN HUMAN 25% 100 ML IV (14:42)
[2018-03-26 15:41] LABS: IMMEDIATE SPIN CROSSMATCH 1 1
[2018-03-26] MEDS: HEPARIN 1000 UNITS/ML 10 ML INJ CATHETER (16:12)
[2018-03-26] MEDS: FLUCONAZOLE 100 MG/50 ML (PMX) 50 ML IVPB (17:51)
[2018-03-26] MEDS: OXYCODONE/ACETAMINOPHEN (5/325) TAB PO (18:25)
[2018-03-26] MEDS: VANCOMYCIN 1.25 GM in SOD CHLORIDE 0.9% 250 ML IVPB (18:50)
[2018-03-26] MEDS: traZODone 50 MG TAB PO (21:50)
[2018-03-27] MEDS: LIDOCAINE 2% VISC 15 ML CUP PO ×4 (00:40→17:26)
[2018-03-27] MEDS: METOCLOPRAMIDE 10 MG INJ IV ×4 (00:40→17:39)
[2018-03-27] MEDS: OXYCODONE/ACETAMINOPHEN (5/325) TAB PO ×2 (00:51→06:28)
[2018-03-27] MEDS: INSULIN ASPART [NOVOLOG] 3 ML PEN SC ×6 (01:00→21:47)
[2018-03-27] MEDS: IPRATROPIUM (NEB) 0.5 MG/2.5 ML AMP HHN ×6 (01:09→20:58)
[2018-03-27] MEDS: ALBUTEROL 0.083% (NEB) 2.5 MG/3 ML AMP HHN ×6 (01:09→21:04)
[2018-03-27] MEDS: ACCU-CHEK XX ×6 (01:21→21:43)
[2018-03-27] MEDS: NORepinephrine 32 MG in DEXTROSE 5% 218 ML IV (01:30)
[2018-03-27] MEDS: FENTAnyl 50 MCG/ML VIAL IV ×4 (04:00→18:29)
[2018-03-27 05:29] LABS: ADD MAN DIFF? NO
[2018-03-27 05:34] LABS: ABNORMAL IP MESSAGE 1; BASOPHILS % 0.1 % (0.0-2.0); EOSINOPHILS # 0.1 10^3/ul (0.0-0.5); EOSINOPHILS % 0.6 % (0.0-7.0); HEMATOCRIT 25.4 % (37.0-47.0); HEMOGLOBIN 7.7 g/dl (12.0-16.0); LYMPHOCYTES # 0.4 10^3/ul (0.8-2.9); LYMPHOCYTES % 2.6 % (15.0-51.0); MEAN CORPUSCULAR HEMOGLOBIN 28.6 pg (29.0-33.0); MEAN CORPUSCULAR HGB CONC 30.3 g/dl (32.0-37.0); MEAN CORPUSCULAR VOLUME 94.4 fl (82.0-101.0); MEAN PLATELET VOLUME 11.1 fl (7.4-10.4); MONOCYTE # 0.4 10^3/ul (0.3-0.9); MONOCYTES % 2.9 % (0.0-11.0); NEUTROPHIL # 13.4 10^3/ul (1.6-7.5); NEUTROPHILS % 92.4 % (39.0-77.0); PLATELET COUNT 127 10^3/UL (140-415); RED BLOOD COUNT 2.69 10^6/ul (4.20-5.40); RED CELL DISTRIBUTION WIDTH 19.9 % (11.5-14.5)
[2018-03-27 05:34] LABS: WHITE BLOOD COUNT 14.5 10^3/ul (4.8-10.8)
[2018-03-27 05:39] LABS: POSITIVE DIFF @See below
[2018-03-27] MEDS: PANTOPRAZOLE 40 MG INJ IV (05:40)
[2018-03-27] MEDS: LEVOTHYROXINE 200 MCG VIAL IV (06:25)
[2018-03-27 06:39] LABS: ANION GAP 16 (8-16); BLOOD UREA NITROGEN 63 mg/dl (7-20); CALCIUM 8.3 mg/dl (8.4-10.2); CARBON DIOXIDE 25 mmol/L (21-31); CHLORIDE 99 mmol/L (97-110); CREATININE 1.91 mg/dl (0.44-1.00); GLUCOSE 201 mg/dl (70-220); PHOSPHORUS 4.4 mg/dl (2.5-4.9); POTASSIUM 4.5 mmol/L (3.5-5.1); SODIUM 135 mmol/L (135-144)
[2018-03-27] MEDS: NYSTATIN SUSP 5 ML CUP PO ×4 (08:38→21:37)
[2018-03-27] MEDS: DOCUSATE SODIUM 100 MG CAP PO (08:38)
[2018-03-27] MEDS: CLOTRIMAZOLE 10 MG TROCHE MT ×5 (08:38→21:37)
[2018-03-27] MEDS: MIDODRINE 5 MG TAB PO ×3 (08:38→16:07)
[2018-03-27] MEDS: NYSTATIN 30 GM POWDER BTL TOP ×2 (08:38→21:44)
[2018-03-27] MEDS: MEROPENEM 500MG/50 ML (PMX) 50 ML IVPB ×2 (08:38→21:37)
[2018-03-27] MEDS: LIDOCAINE 5% PATCH TD (08:38)
[2018-03-27] MEDS: BACITRACIN 0.9 GM OINT TOP ×2 (08:39→21:44)
[2018-03-27] MEDS: PETROLATUM 28.35 GM JELLY TOP (08:39)
[2018-03-27] MEDS: HEPARIN 5,000 UNIT/0.5 ML VIAL SC ×2 (08:42→21:42)
[2018-03-27] MEDS: ONDANSETRON 4 MG INJ IV (09:29)
[2018-03-27] MEDS: TPN 1,000 ML IV ×2 (16:36→23:06)
[2018-03-27] MEDS: FLUCONAZOLE 100 MG/50 ML (PMX) 50 ML IVPB (16:37)
[2018-03-27] MEDS: FAT EMULSION 20% 250 ML IV (16:37)
[2018-03-27] MEDS: traZODone 50 MG TAB PO (21:37)
[2018-03-28] MEDS: ACCU-CHEK XX ×6 (00:53→22:45)
[2018-03-28] MEDS: LIDOCAINE 2% VISC 15 ML CUP PO ×4 (00:53→17:56)
[2018-03-28] MEDS: METOCLOPRAMIDE 10 MG INJ IV ×4 (00:53→17:57)
[2018-03-28] MEDS: INSULIN ASPART [NOVOLOG] 3 ML PEN SC ×6 (01:06→22:51)
[2018-03-28] MEDS: ALBUTEROL 0.083% (NEB) 2.5 MG/3 ML AMP HHN ×3 (01:16→09:00)
[2018-03-28] MEDS: IPRATROPIUM (NEB) 0.5 MG/2.5 ML AMP HHN ×3 (01:16→09:00)
[2018-03-28] MEDS: FENTAnyl 50 MCG/ML VIAL IV ×2 (01:34→12:34)
[2018-03-28] MEDS: OXYCODONE/ACETAMINOPHEN (5/325) TAB PO ×2 (02:45→09:37)
[2018-03-28 05:44] LABS: TRIGLYCERIDES 187 mg/dl (0-149)
[2018-03-28 05:51] LABS: PREALBUMIN 5.9 mg/dl (17.6-36.0)
[2018-03-28 05:53] LABS: ANION GAP 18 (8-16); BLOOD UREA NITROGEN 69 mg/dl (7-20); CALCIUM 8.5 mg/dl (8.4-10.2); CARBON DIOXIDE 23 mmol/L (21-31); CHLORIDE 100 mmol/L (97-110); CREATININE 2.13 mg/dl (0.44-1.00); GLUCOSE 177 mg/dl (70-220); PHOSPHORUS 4.5 mg/dl (2.5-4.9); POTASSIUM 4.7 mmol/L (3.5-5.1); SODIUM 136 mmol/L (135-144)
[2018-03-28] MEDS: LEVOTHYROXINE 200 MCG VIAL IV (06:00)
[2018-03-28] MEDS: PANTOPRAZOLE 40 MG INJ IV (06:04)
[2018-03-28] MEDS: BACITRACIN 0.9 GM OINT TOP ×2 (09:00→22:46)
[2018-03-28] MEDS: DOCUSATE SODIUM 100 MG CAP PO (09:00)
[2018-03-28] MEDS: MEROPENEM 500MG/50 ML (PMX) 50 ML IVPB ×2 (09:36→22:45)
[2018-03-28] MEDS: CLOTRIMAZOLE 10 MG TROCHE MT ×5 (09:37→22:38)
[2018-03-28] MEDS: NYSTATIN 30 GM POWDER BTL TOP ×2 (09:38→22:45)
[2018-03-28] MEDS: PETROLATUM 28.35 GM JELLY TOP (09:38)
[2018-03-28] MEDS: MIDODRINE 5 MG TAB PO ×3 (09:39→17:00)
[2018-03-28] MEDS: NYSTATIN SUSP 5 ML CUP PO ×4 (09:40→22:39)
[2018-03-28] MEDS: PROMETHAZINE (1.25 MG/ML) 5 ML CUP PO (09:40)
[2018-03-28] MEDS: HEPARIN 5,000 UNIT/0.5 ML VIAL SC ×2 (10:13→22:52)
[2018-03-28] MEDS: LIDOCAINE 5% PATCH TD (12:13)
[2018-03-28] MEDS ORDERED: ALBUTEROL/IPRATROPIUM (NEB) 3 ML AMP HHN (13:30)
[2018-03-28] MEDS: TPN 1,000 ML IV (17:57)
[2018-03-28] MEDS: FLUCONAZOLE 100 MG/50 ML (PMX) 50 ML IVPB (17:57)
[2018-03-28] MEDS: NORepinephrine 32 MG in DEXTROSE 5% 218 ML IV (18:24)
[2018-03-28 21:06] LABS: Allen Test ACCEPTAB; Arterial Base Excess -5.9 mmol/L (-3.0-3); Arterial Blood Gas Oxygen Sat 94.9 mmHG (95.0-98.0); Arterial COHb 1.5 % (0.0-3.0); Arterial Fraction of Oxyhgb 93.4 % (93.0-99.0); Arterial HCO3 24.9 mmol/L (22.0-26.0); Arterial MetHb 0.1 % (0.0-1.5); Arterial Total Hemglobin 8.7 g/dl (12.0-18.0); Arterial pCO2 89.7 mmhg (35-45); MODE NASAL CANNULA; Site Right Radial
[2018-03-28] MEDS: traZODone 50 MG TAB PO (22:38)
[2018-03-29] MEDS: ACCU-CHEK XX ×2 (01:00→05:42)
[2018-03-29] MEDS: INSULIN ASPART [NOVOLOG] 3 ML PEN SC ×4 (01:00→13:00)
[2018-03-29] MEDS: METOCLOPRAMIDE 10 MG INJ IV ×3 (03:00→12:00)
[2018-03-29 05:32] LABS: ANION GAP 14 (8-16); BLOOD UREA NITROGEN 74 mg/dl (7-20); CALCIUM 8.4 mg/dl (8.4-10.2); CARBON DIOXIDE 25 mmol/L (21-31); CHLORIDE 102 mmol/L (97-110); CREATININE 2.28 mg/dl (0.44-1.00); GLUCOSE 345 mg/dl (70-220); MAGNESIUM 2.2 mg/dl (1.7-2.5); PHOSPHORUS 5.2 mg/dl (2.5-4.9); POTASSIUM 4.5 mmol/L (3.5-5.1); SODIUM 136 mmol/L (135-144)
[2018-03-29] MEDS: LIDOCAINE 2% VISC 15 ML CUP PO ×3 (05:42→12:00)
[2018-03-29] MEDS: LEVOTHYROXINE 200 MCG VIAL IV (05:48)
[2018-03-29] MEDS: PANTOPRAZOLE 40 MG INJ IV (05:48)
[2018-03-29 07:08] LABS: AADO2 Arterial 151.3 mmHg (7.0-24.0); Allen Test ACCEPTAB; Arterial Base Excess -5.2 mmol/L (-3.0-3); Arterial Blood Gas Oxygen Sat 96.7 mmHG (95.0-98.0); Arterial COHb 1.8 % (0.0-3.0); Arterial Fraction of Oxyhgb 94.8 % (93.0-99.0); Arterial HCO3 25.8 mmol/L (22.0-26.0); Arterial MetHb 0.2 % (0.0-1.5); Arterial Total Hemglobin 8.9 g/dl (12.0-18.0); Arterial pCO2 92.4 mmhg (35-45); Blood Gas IEPAP 15/5; Blood Gas PS 10; MODE MASK - BIPAP; Site Right Radial
[2018-03-29] MEDS: CLOTRIMAZOLE 10 MG TROCHE MT ×2 (08:06→12:00)
[2018-03-29] MEDS: MIDODRINE 5 MG TAB PO ×2 (08:06→12:38)
[2018-03-29] MEDS: DOCUSATE SODIUM 100 MG CAP PO (08:06)
[2018-03-29] MEDS: NYSTATIN SUSP 5 ML CUP PO ×2 (09:00→12:38)
[2018-03-29] MEDS: PETROLATUM 28.35 GM JELLY TOP (09:00)
[2018-03-29] MEDS: MEROPENEM 500MG/50 ML (PMX) 50 ML IVPB (10:14)
[2018-03-29] MEDS: LIDOCAINE 5% PATCH TD (10:16)
[2018-03-29] MEDS: NYSTATIN 30 GM POWDER BTL TOP (10:16)
[2018-03-29] MEDS: BACITRACIN 0.9 GM OINT TOP (10:18)
[2018-03-29] MEDS: HEPARIN 5,000 UNIT/0.5 ML VIAL SC (10:20)
[2018-03-29] MEDS: TPN 1,000 ML IV (11:52)
[2018-03-29] MEDS ORDERED: PHENYLephrine 40 MG in DEXTROSE 5% 496 ML IV (13:00)
[2018-03-29] MEDS: morphine (DRIP) 100 MG/100 ML 100 ML IV (14:20)
[2018-03-29] MEDS ORDERED: ARTIFICIAL TEARS 15 ML OPH BOTH EYES (14:30)
[2018-03-29] MEDS ORDERED: HALOPERIDOL 5 MG INJ IM (14:30)
[2018-03-29] MEDS ORDERED: DIMETHICONE STICK TOP (14:30)
[2018-03-29] MEDS: SCOPOLAMINE 1.5 MG PATCH TRANSDERM (16:09)
[2018-03-29] MEDS ORDERED: VANCOMYCIN 1.25 GM in SOD CHLORIDE 0.9% 250 ML IVPB (18:00)
== END 2018-03-29 22:10 | disposition expired | DRG 871 ==
LOC: ICU 03:35
PROVIDERS: Internal Medicine Nephrology
PROC: 0W9B3ZZ Drainage of Left Pleural Cavity, Percutaneous Approach (ICD-10-PCS; principal; 2018-03-17)
PROC: 30233N1 Transfusion of Nonautologous Red Blood Cells into Peripheral Vein, Percutaneous Approach (ICD-10-PCS; 2018-03-18)
PROC: 5A1D70Z Performance of Urinary Filtration, Intermittent, Less than 6 Hours Per Day (ICD-10-PCS; 2018-03-18)
DX: A41.9 Sepsis, unspecified organism (principal); G92 Toxic encephalopathy; R65.21 Severe sepsis with septic shock; J96.02 Acute respiratory failure with hypercapnia; J96.01 Acute respiratory failure with hypoxia; J18.9 Pneumonia, unspecified organism; N18.6 End stage renal disease; C56.9 Malignant neoplasm of unspecified ovary; J90 Pleural effusion, not elsewhere classified; N17.9 Acute kidney failure, unspecified; I12.0 Hypertensive chronic kidney disease with stage 5 chronic kidney disease or end stage renal disease; N39.0 Urinary tract infection, site not specified; E87.0 Hyperosmolality and hypernatremia; C79.9 Secondary malignant neoplasm of unspecified site; L03.116 Cellulitis of left lower limb; L03.115 Cellulitis of right lower limb; B37.81 Candidal esophagitis; Z68.43 Body mass index [BMI] 50.0-59.9, adult; K56.7 Ileus, unspecified; B37.0 Candidal stomatitis; D63.1 Anemia in chronic kidney disease; E87.5 Hyperkalemia; E87.70 Fluid overload, unspecified; E03.9 Hypothyroidism, unspecified; E66.01 Morbid (severe) obesity due to excess calories; G89.4 Chronic pain syndrome; R13.10 Dysphagia, unspecified; Z66 Do not resuscitate; Z99.2 Dependence on renal dialysis; Z93.1 Gastrostomy status
CPT/HCPCS: 36430; 36600; 71045; 74018; 76942; 80048; 80053; 80076; 80202; 82270; 82803; 82962; 83605; 83735; 84100; 84134; 84145; 84478; 85014; 85018; 85025; 85610; 85730; 86644; 86850; 86900; 86901; 86920; 86945; 87040; 87070; 87081; 87102; 87116; 87340; 89051; 90935; 92526; 92610; 93970; 94640; 94660